=== PATIENT | female | born 1960 | race Caucasian/White ===

== ENCOUNTER 2016-09-10 05:00 | Inpatient (IN) | payer BC, OTHER ==
[2016-08-25 12:50] VITALS: BMI 37.0
--- NOTE | 2016-08-25 13:15 | PAT Medication Instructions ---
Service Date Aug 25, 2016. Current Home Medication List Bupropion (Wellbutrin Sr), 150 MG PO BID Naproxen (Naprosyn), 500 MG PO BID Ropinirole (Requip), 1 MG PO BID Medication Instructions For Your Scheduled Surgery Naproxen (Naprosyn), 500 MG PO BID (check with surgeon for instructions) - Hold the following medications the morning of surgery: Ropinirole (Requip), 1 MG PO BID - Take the following medications the morning of surgery with a sip of water: Bupropion (Wellbutrin Sr), 150 MG PO BID - Hold the following medications as scheduled the night before surgery: Ropinirole (Requip), 1 MG PO BID - Take the following medications as scheduled the night before surgery: Bupropion (Wellbutrin Sr), 150 MG PO BID If you have any questions please call us at [phone] (Danelle Retana PA-C ) or [phone] or [phone]
--- NOTE | 2016-08-25 14:04 | DIAGNOSTIC IMAGING REPORT ---
CHEST PREADMISSION(PA/LAT) CLINICAL HISTORY: PAT preoperative evaluation COMPARISON STUDY: No previous studies for comparison. FINDINGS: The bones soft tissues and hemidiaphragms are normal. The cardiomediastinal silhouette is normal. The lungs are clear. The pulmonary vasculature is normal. IMPRESSION: Negative chest. Electronically signed by: Bogdan Gu M.D. 08/25/2016 2:03 PM Dictated Date/Time: 08/25/2016 2:02 PM
[2016-08-25 14:15] LABS: BASO % 0.6 %; BASO ABS # 0.05 K/uL (0-0.2); COMPLETE YES; EOS % 3.1 %; HEMATOCRIT 36.9 % (37-47); IG% 0.3 %; LYMPH ABS # 2.52 K/uL (1.2-3.4); MEAN CELL VOLUME 90.4 fL (80-100); MEAN CORPUSCULAR HEMOGLOBIN 31.4 pg (25-34); MEAN CORPUSCULAR HGB CONC 34.7 g/dl (32-36); MEAN PLATELET VOLUME 10.2 fL (7.4-10.4); MONO % 9.4 %; NEUT % 57.6 %; PLATELET COUNT 283 K/uL (130-400); RED BLOOD COUNT 4.08 M/uL (4.2-5.4); WHITE BLOOD COUNT 8.68 K/uL (4.8-10.8)
[2016-08-25 14:32] LABS: PROTHROMBIN TIME (PATIENT) 10.7 SECONDS (9.0-12.0)
[2016-08-25 14:37] LABS: CALCIUM 9.4 mg/dl (8.5-10.1); CREATININE 0.64 mg/dl (0.60-1.20)
[2016-08-25 14:39] LABS: URINE APPEARANCE CLEAR (CLEAR); URINE BILIRUBIN NEG (NEG); URINE COLOR YELLOW; URINE NITRITE NEG (NEG); URINE SPECIFIC GRAVITY 1.022 (1.000-1.030); UROBILINOGEN NEG (NEG); ZZUR CULT IF INDIC CLEAN CATCH NO
[2016-08-25 14:46] LABS: MANUAL MICROSCOPIC REQUIRED? NO; REVIEW REQ? NO
[2016-08-26 06:10] LABS: ESTIMATED AVERAGE GLUCOSE 123 mg/dl; HA1C FLAG Normal (Normal)
--- NOTE | 2016-09-09 12:09 | HISTORY & PHYSICAL EXAMINATION ---
DATE OF ADMISSION: 09/10/2016 CHIEF COMPLAINT: Left knee pain. HISTORY OF PRESENT ILLNESS: The patient is a 56-year-old female with a known osteoarthritis about her left knee. She had previous right total knee arthroplasty, which has done well. She now has ongoing pain and disability with her left knee and desires to proceed with left total knee arthroplasty also. PAST MEDICAL HISTORY: Rosacea, restless legs syndrome, nonalcoholic fatty liver disease, hyperlipidemia, and obesity. PAST SURGICAL HISTORY: Right knee as above, x2, hysterectomy, and appendectomy. MEDICATIONS: Include Requip 1 mg twice daily, Wellbutrin SR 150 mg twice daily, Naprosyn 500 mg twice daily p.r.n., and Ventolin inhaler p.r.n. ALLERGIES: INCLUDE AMOXICILLIN. SOCIAL HISTORY AND REVIEW OF SYSTEMS: Noncontributory. PHYSICAL EXAMINATION: GENERAL: Well-nourished and well-developed, obese female who appears her stated age. HEENT: Normocephalic and atraumatic, extraocular movements intact, oropharynx pink and moist. NECK: Supple without adenopathy. LUNGS: Clear to auscultation bilaterally. HEART: Regular rate and rhythm. ABDOMEN: Soft, nontender, nondistended, and obese. EXTREMITIES: The upper extremities are within normal limits. The left knee has a varus alignment. Her range of motion is from 0-120 degrees. She has mild crepitus with range of motion. X-RAYS: X-rays were reviewed. She has a varus aligned knee with bone on bone arthritis of medial compartment with near complete loss of the joint space. There is osteophyte formation about the medial and lateral joint line as well as the patellofemoral joint. ASSESSMENT: Left knee degenerative joint disease. PLAN: Risks versus benefits were discussed. Consent was obtained. The patient's primary care physician is Dr. Leos from [facility]. We will proceed with left total knee arthroplasty upon preoperative workup and medical clearance.
[~2016-09-10] VITALS: Ht 180.3 cm; Wt 121.9 kg
[2016-09-10] VITALS (9 sets, daily range): BP systolic 99–124; BP diastolic 60–78; PULSE 65–77; TEMP 36.5–37.2; O2SAT 94–100; Ht 180.3 cm; Wt 121.9 kg
[~2016-09-10 05:00] MED LIST: BUPR-79 PO; NAPR-1169 PO; ROPI1TAB PO
[2016-09-10] MEDS ORDERED: NURSING VERBAL MED ORDER STA ×2 (05:26→07:22)
[2016-09-10] MEDS ORDERED: LACTATED RINGER'S 1000ML IV SCH (06:00)
[2016-09-10] MEDS ORDERED: CEFAZOLIN 3000 MG/65 ML D5W 65 ML IV SCH (06:00)
[2016-09-10] MEDS ORDERED: LACTATED RINGER'S 500 ML IV SCH (06:00)
[2016-09-10] MEDS ORDERED: ROPIVACAINE 5MG/ML 30 ML 150 MG, BUPIVACAINE/EPINEPHR 0.5% MPF 30 ML, KETOROLAC TROMETH... INFIL SCH ×7 (06:00)
[2016-09-10] MEDS ORDERED: BUPIVACAINE 0.5 % 5 MG/1 ML PF 10ML VIAL ONE (06:21)
[2016-09-10] MEDS ORDERED: BUPIVACAINE 0.25% 30 ML VIAL ONE (06:21)
[2016-09-10] MEDS ORDERED: FENTANYL CITRATE INJ 50 MCG/1 ML 2 ML VIAL ONE (06:46)
[2016-09-10] MEDS ORDERED: MIDAZOLAM HCL 1 MG/ML 2ML VIAL ONE ×2 (06:46)
[2016-09-10] MEDS ORDERED: ORTHO JOINT ANESTHETIC ONE (06:49)
[2016-09-10] MEDS ORDERED: POVIDONE-IODINE OP SOLN 30 ML BTL ONE (06:49)
[2016-09-10] MEDS ORDERED: BACITRACIN 50000 UNIT VIAL ONE (06:49)
[2016-09-10] MEDS ORDERED: CLINDAMYCIN 600 MG/54 ML D5W IV ONE (06:56)
[2016-09-10] MEDS: TRANEXAMIC ACID AMP 1,000 MG in NSS 100ML IV SCH ×2 (07:00→07:40)
--- NOTE | 2016-09-10 07:02 | History & Physical Bridge Note ---
H&P Re-Evaluation Bridge Note: I have examined the patient, reviewed the History & Physical and in the interval since the performance of the History & Physical I have noted the following changes of clinical significance: No changes noted
[2016-09-10] MEDS ORDERED: PROPOFOL IV EMULSION 10 MG/ML 20 ML VIAL IV ONE ×2 (07:14→08:18)
[2016-09-10] MEDS ORDERED: EpHEDrine SULFATE INJ 50 MG/ML AMP IV PRN (07:45)
[2016-09-10] MEDS ORDERED: ATROPINE SULFATE 0.1 MG/ML 5ML SYR IV PRN (07:45)
[2016-09-10] MEDS ORDERED: FENTANYL CITRATE INJ 50 MCG/1 ML 2 ML VIAL IV PRN (07:45)
[2016-09-10] MEDS ORDERED: ONDANSETRON INJ 2 MG/ML 2 ML VIAL IV PRN ×2 (07:45→08:45)
--- NOTE | 2016-09-10 08:05 | [facility] Post Operative Brief Note ---
Immediate Operative Summary Operative Date Sep 10, 2016. Pre-Operative Diagnosis Left Knee Degenerative Joint Disease Post-Operative Diagnosis Left Knee Degenerative Joint Disease Procedure(s) Performed Left Total Knee Arthroplasty, Cemented Surgeon Dr. Moeller Supply Manager Surgeon(s) Immanuel Escamilla PA-C Estimated Blood Loss 10mL Findings severe OA Specimens A: Left Knee Bone and Tissue Disposition Surgical ICU
--- NOTE | 2016-09-10 08:08 | [facility] Post Operative Brief Note ---
Immediate Operative Summary Operative Date Sep 10, 2016. Pre-Operative Diagnosis Left Knee Degenerative Joint Disease Post-Operative Diagnosis Left Knee Degenerative Joint Disease Procedure(s) Performed Left Total Knee Arthroplasty, Cemented Surgeon Dr. Moeller Hand Folder Surgeon(s) Immanuel Escamilla PA-C Estimated Blood Loss 10mL Findings OA Specimens A: Left Knee Bone and Tissue Disposition Recovery Room / PACU
--- NOTE | 2016-09-10 08:21 | OPERATIVE REPORT ---
DATE OF OPERATION: 09/10/2016 PREOPERATIVE DIAGNOSIS: Osteoarthritis left knee. POSTOPERATIVE DIAGNOSIS: Osteoarthritis left knee. PROCEDURE: Left total knee arthroplasty. SURGEON: Dr. Moeller. NETWORK SERVICES PROJECT MANAGER: Immanuel Escamilla PA-C. ANESTHESIA: Spinal. COMPLICATIONS: None. OPERATION AND FINDINGS: Following induction of spinal anesthesia, the patient's left leg was prepped and draped in the usual sterile manner. Limb was exsanguinated with an Esmarch bandage and tourniquet was inflated to 350 mmHg. A longitudinal incision was made anteriorly. Subcutaneous tissue was sharply dissected. Electrocautery was used for hemostasis. Prepatellar bursa was incised and median parapatellar incision was performed. Patella was everted and the knee was flexed. Fat pad was removed to aid in visualization and the anterior and posterior cruciate ligaments were removed. The medial face of the tibia was cleared of soft tissue first with a Bovie and a Tony elevator. This tissue was retracted posteriorly using a blunt Hohmann. A Cloud retractor was used to expose the synovium above on the anterior aspect of the femur and this was removed down to bone. The PSI guide was placed on the distal femur and two pins were placed anteriorly and kept in position and two additional pins were placed distally and removed. The distal femoral cutting block was placed in position and the distal femoral cut was used in the +0 setting. Next, the cutting block was removed and the size 4 block was placed in the distal end of the femur. Care was taken to ensure appropriate external rotation and feeler gauge was used to ensure no notching would occur. The femoral block was centered on the distal femur and in the medial and lateral direction and was fixed using two bone screws. The gold pins were then removed. The oscillating saw was used to create the bone cuts and the distal femoral cutting block was removed and the reciprocating saw was used to further trim the femoral cuts as well as a deep in the area for the trochlear groove. Next, posterior condyle remnants were removed. Following this, a meniscal clamp and knife were utilized to remove the anterior portion of both medial and lateral meniscus. The proximal tibia PSI guide was placed into position and the proximal tibial cutting guide was screwed into position. The extra medullary alignment guide was utilized to ensure appropriate alignment. The proximal tibia was cut and the proximal tibial cutting block was removed and this bone fragment was removed. The appropriate guide was used to perform the notch cut on the distal femur and a lamina restaurant team member and a cochlear knife were utilized to finish both medial and lateral meniscectomies to remove any remnants of the posterior or anterior cruciate ligaments. Following this, the distal femoral component was impacted into position and blunt Kathie was used to sublux the tibia anteriorly. The proximal tibia was sized and a size 4 tibial tray was chosen as the size to be used. This was put into position and appropriate external rotation and a double check with extramedullary alignment guide was performed. The canal for the tibial stem was prepared first with a 17 mm drill and then the punch and a mallet and the trial tibial poly was placed. A size 13 was chosen the size to be used. It was brought to extension and the patella was prepared with the patellar reamer. A size 36 component was chosen the size to be used. The trial component was placed and knee was taken through a full range of motion and there was found to be no lateral subluxation of the tibia. No lateral release was required. The trials were all removed. The final components were obtained and assembled. Cement was mixed. The knee was thoroughly irrigated and the ortho mix was injected about the knee joint. The final components were cemented into position. After thoroughly suctioning and drying the bone ends, all excess cement was removed. The knee was held in extension while the cement hardened. The wound was irrigated and closed over a Hemovac drain. #1 Vicryl was used to close the extensor mechanism. Subcutaneous tissues closed using 0 Dexon. Skin was closed with munira. Sterile dressing of Adaptic, 4 x 4's, sterile Webril, and Benjamin was applied. The patient tolerated the procedure well. Recovery room stable. Due to the complex nature of the procedure, the entire surgery was performed with the operational assistance of Immanuel Escamilla PA-C. The primary teaching assistant, under direct supervision, was involved in the actual performance of all aspects of the surgical procedure including hemostasis, tissue retraction and incision, instrument management, patient positioning, and wound closure. I attest to the content of the Intraoperative Record and any orders documented therein. Any exceptio ns are noted below.
[2016-09-10] MEDS ORDERED: METOCLOPRAMIDE HCL INJ 5 MG/ML 2 ML VIAL IV PRN (08:45)
[2016-09-10] MEDS ORDERED: HYDROmorphone INJ 2 MG/ML SYR/VIAL IV PRN (08:45)
[2016-09-10] MEDS ORDERED: ZOLPIDEM TARTRATE 5 MG TAB PO PRN (08:45)
[2016-09-10] MEDS ORDERED: ALUMINUM/MAGNESIUM/SIMETH (MAALOX MAX) 30 ML UDC PO PRN (08:45)
[2016-09-10] MEDS ORDERED: MAGNESIUM HYDROXIDE SUSP 30 ML UDC PO PRN (08:45)
--- NOTE | 2016-09-10 09:09 | DIAGNOSTIC IMAGING REPORT ---
LEFT KNEE 1 OR 2 VIEWS ROUTINE CLINICAL HISTORY: AP/LATERAL IN PACU LEFT KNEE trauma placement COMPARISON: None. DISCUSSION: Status post total left knee replacement. Good contact between prosthetic and underlying bone. Surgical drains are in position. Expected soft tissue postoperative change IMPRESSION: Anatomic alignment status post total left knee replacement Electronically signed by: Bogdan Gu M.D. 09/10/2016 9:08 AM Dictated Date/Time: 09/10/2016 9:06 AM
--- NOTE | 2016-09-10 09:13 | Anesthesiology Progress Note ---
Anesthesia Post Op Note Date & Time Sep 10, 2016 at 09:13 Vital Signs Pain Intensity: 0 Vital Signs Past 12 Hours Date Time Temp Pulse Resp B/P Pulse Ox O2 Delivery O2 Flow Rate FiO2 09/10/16 08:40 36.6 77 16 109/70 98 Nasal Cannula 2 09/10/16 05:40 36.8 71 20 117/70 97 Room Air Notes Mental Status: alert / awake / arousable, participated in evaluation Pt Amnestic to Procedure: Yes Nausea / Vomiting: adequately controlled Pain: adequately controlled Airway Patency, RR, SpO2: stable & adequate BP & HR: stable & adequate Hydration State: stable & adequate Neuraxial Anesthesia: was administered, sensory block is resolving Anesthetic Complications: no major complications apparent
[2016-09-10] MEDS: D5W AND 1/2NSS + 20MEQ KCL 1,000 ML IV SCH ×2 (10:34→20:36)
[2016-09-10] MEDS: DOCUSATE SODIUM 100 MG CAP PO SCH ×2 (10:34→20:39)
[2016-09-10] MEDS: MULTIVITAMIN TAB PO SCH (10:35)
[2016-09-10] MEDS: KETOROLAC TROMETHAMINE 30 MG/ML VIAL IV. SCH ×3 (10:35→21:53)
[2016-09-10] MEDS: PANTOprazole SOD 40 MG TAB PO SCH (10:36)
[2016-09-10] MEDS: ROPINIROLE HCL 1 MG TAB PO SCH ×2 (10:36→20:39)
[2016-09-10] MEDS: BuPROPion SR 150 MG TABCR PO SCH ×2 (10:37→20:39)
[2016-09-10] MEDS: FERROUS GLUCONATE 324 MG TAB PO SCH ×2 (12:26→18:05)
[2016-09-10] MEDS: ACETAMINOPHEN 500 MG TAB PO SCH ×2 (13:33→21:53)
[2016-09-10] MEDS: CLINDAMYCIN IV 600 MG in DEXTROSE 5% ADD-VANTAGE 50ML 50 ML IV SCH ×2 (16:08→23:37)
[2016-09-10] MEDS: ASPIRIN 81 MG ECTAB PO SCH (20:39)
[2016-09-10] MEDS: OXYCODONE HCL 10 MG TABCR (OXYCONTIN) PO SCH (20:40)
[2016-09-11] MEDS: KETOROLAC TROMETHAMINE 30 MG/ML VIAL IV. SCH (03:46)
[2016-09-11 04:37] VITALS: BP 100/62; PULSE 72; TEMP 36.6; O2SAT 95
[2016-09-11] MEDS: ACETAMINOPHEN 500 MG TAB PO SCH ×3 (05:33→21:18)
[2016-09-11] MEDS: D5W AND 1/2NSS + 20MEQ KCL 1,000 ML IV SCH (05:33)
[2016-09-11 07:09] LABS: HEMATOCRIT 32.7 % (37-47); MEAN CELL VOLUME 90.8 fL (80-100); MEAN CORPUSCULAR HEMOGLOBIN 30.8 pg (25-34); MEAN CORPUSCULAR HGB CONC 33.9 g/dl (32-36); MEAN PLATELET VOLUME 9.6 fL (7.4-10.4); PLATELET COUNT 254 K/uL (130-400); WHITE BLOOD COUNT 10.85 K/uL (4.8-10.8)
[2016-09-11] MEDS ORDERED: DEXAMETHASONE INJ 10 MG in SYRINGE 0 ML IV ONE (07:30)
[2016-09-11 07:32] LABS: CALCIUM 8.5 mg/dl (8.5-10.1); CREATININE 0.62 mg/dl (0.60-1.20); POTASSIUM 4.4 mmol/L (3.5-5.1)
--- NOTE | 2016-09-11 07:40 | Orthopedic Progress Note ---
Orthopedic Progress Note Date of Service Sep 11, 2016. Subjective Post OP Day: 1 Reports: feeling well Objective N/V intact, dressing C/D/I (Hemovac in place), toes mobile Date Time Temp Pulse Resp B/P Pulse Ox O2 Delivery O2 Flow Rate FiO2 09/11/16 04:37 36.6 72 16 100/62 95 Room Air 09/10/16 23:11 36.8 71 16 99/60 95 Room Air 09/10/16 20:10 36.8 74 18 117/73 95 Room Air 09/10/16 19:50 Room Air 09/10/16 16:20 Room Air 09/10/16 15:30 36.9 77 18 108/67 94 Room Air 09/10/16 12:30 37.2 76 16 118/78 95 Nasal Cannula 2.0 09/10/16 11:30 36.7 74 16 124/78 99 2.0 09/10/16 10:30 36.6 74 16 111/76 100 2.0 09/10/16 10:00 71 16 108/75 100 Nasal Cannula 2.0 09/10/16 10:00 Nasal Cannula 2.0 09/10/16 09:55 Nasal Cannula 2.0 09/10/16 09:30 36.5 65 16 107/69 98 Nasal Cannula 2.0 09/10/16 09:15 36.7 63 17 104/67 95 Nasal Cannula 2 09/10/16 09:05 65 15 112/70 98 Nasal Cannula 2 09/10/16 08:55 74 16 116/71 96 Nasal Cannula 2 09/10/16 08:47 73 14 98 09/10/16 08:47 73 14 09/10/16 08:46 108/72 09/10/16 08:45 80 16 09/10/16 08:45 81 16 99 09/10/16 08:44 109/70 09/10/16 08:40 36.6 77 16 109/70 98 Nasal Cannula 2 Laboratory Results 24 Hours: Test 09/11/16 06:52 Hematocrit 32.7 % Hemoglobin 11.1 g/dL Assessment & Plan Assessment: 56 yo female stable POD #1 s/p left TKA Plan: 1. Med management 2. DVT prophylaxis- ASA, TEDs, SCDs 3. PT/OT 4. D/C planning- home w/ HH
--- NOTE | 2016-09-11 07:42 | Discharge Instructions ---
Discharge Instructions Date of Service Sep 11, 2016. Admission Reason for Admission: Left Knee Degenerative Joint Disease Discharge Discharge Diagnosis / Problem: Left knee arthritis Discharge Goals Goal(s): Decrease discomfort, Improve function Activity Recommendations Activity Limitations: as noted below Weightbearing Status: Left weightbearing (as tolerated) . Instructions / Follow-Up Instructions / Follow-Up ACTIVITY RECOMMENDATIONS: SELF CARE INSTRUCTIONS AFTER TOTAL KNEE REPLACEMENT A. You may need to continue a physical therapy program after discharge from the hospital. There are several options available to you. Your doctor will assist you in selecting the best one for you. 1. An out-patient facility 2 to 3 times a week for therapy or home therapy. 2. Continue working on all exercises taught to you in the hospital. Your goals should be to increase bending of your knee to 90 degrees and beyond and to fully straighten your knee. B. You may progress at your own pace from walking with a walker or crutches to a cane; then to no assistive devices. C. Make walking a part of your daily routine. Be up as much as comfortable with rest periods throughout the day. Rest with leg elevation is very important. Use the ice wrap frequently for the first 3-4 weeks. D. There are no restrictions on activities. You may ride in a car, shop, participate in plumber maintenance and all social activities. E. Wear the long elastic stockings (KIM hose) 20 hours a day for 2 weeks after surgery. They can be removed several times a day for laundering and for a bath. F. You may shower, no tub baths until cleared by your doctor. SPECIAL CARE INSTRUCTIONS: VERY IMPORTANT TO READ AND REVIEW A. There are a few signs you need to watch for after you are home. Call [facility] if you notice any of the followin. Increased severe knee pain. Some pain is expected especially when you exercise. 2. Increased swelling in your leg or knee; pain or swelling of the calf muscle in either lower leg. 3. Any fluid drainage from the incision. 4. Shortness of breath or chest pain. B. Please call [facility] at if you have any concerns or questions about your operation or recovery. The doctor or his nurse will return your call promptly. C. You must take antibiotics before dental work, bladder, bowel or other surgery. Your doctor will provide you with a permanent care to carry describing this precaution. IMPORTANT: * REMEMBER TO TAKE ASPIRIN, 81 MG, TWICE DAILY FOR 4 WEEKS UNLESS OTHERWISE DIRECTED. THIS IS YOUR BLOOD THINNER. * HIGH RISK PATIENTS MAY BE PRESCRIBED A STRONGER BLOOD THINNER. THIS WILL BE PROVIDED AT DISCHARGE. * CALL IF INCREASED PAIN, REDNESS, DRAINAGE OR FEVER GREATER THAT 101. * WEAR KIM HOSE 20 HOURS PER DAY FOR 2 WEEKS. Silverlon- This is a large adhesive bandage that contains silver ions. This helps your incision heal by fighting off bacteria and protecting it from the outside environment. You are permitted to shower with this dressing. This will remain on your incision for 7 days and then should be removed. Some visible blood or drainage through the dressing window is normal. If there is significant drainage or leaking noted before the 7 days notify your doctor's office immediately. Once removed, keep incision clean and dry. If there is any drainage or redness noted, please call your surgeon. FOLLOW UP VISIT: If appointment is not already scheduled: Please call [facility] to make a follow-up appointment for 2 weeks after your surgery at . Current Hospital Diet Patient's current hospital diet: Regular Diet Discharge Diet Recommended Diet: Regular Diet Procedures Procedures Performed: Left Total Knee Arthroplasty, Cemented Pending Studies Studies pending at discharge: no Laboratory Results Hemoglobin A1c Test 08/25/16 13:22 Range/Units Estimated Average Glucose 123 mg/dl Hemoglobin A1c 5.9 H 4.5-5.6 % Medical Emergencies . Who to Call and When: Medical Emergencies: If at any time you feel your situation is an emergency, please call 911 immediately. . Non-Emergent Contact Non-Emergency issues call your: Surgeon Call Non-Emergent contact if: temperature is above 101.5, your pain is not controlled, wound has increased drainage, wound has increased redness . "Provider Documentation" section prepared by Immanuel Escamilla PA-C. VTE Core Measure Inpt VTE Proph given/why not?: Other Anticoagulation (ASA 81mg bid) [place] Drug Monitoring Program Search Results: patient reviewed within database, no issues identified
[2016-09-11 07:50] VITALS: BP 110/72; PULSE 71; TEMP 36.7; O2SAT 97
[2016-09-11] MEDS: OXYCODONE HCL IR 5 MG TAB (IMMEDIATE RELEASE) PO PRN ×4 (08:39→21:20)
[2016-09-11] MEDS: FERROUS GLUCONATE 324 MG TAB PO SCH ×3 (08:39→17:01)
[2016-09-11] MEDS: ROPINIROLE HCL 1 MG TAB PO SCH ×2 (08:39→21:17)
[2016-09-11] MEDS: PANTOprazole SOD 40 MG TAB PO SCH (08:39)
[2016-09-11] MEDS: OXYCODONE HCL 10 MG TABCR (OXYCONTIN) PO SCH ×2 (08:39→19:57)
[2016-09-11] MEDS: BuPROPion SR 150 MG TABCR PO SCH ×2 (08:39→19:59)
[2016-09-11] MEDS: ASPIRIN 81 MG ECTAB PO SCH ×2 (08:39→19:58)
[2016-09-11] MEDS: MULTIVITAMIN TAB PO SCH (08:39)
[2016-09-11] MEDS: DOCUSATE SODIUM 100 MG CAP PO SCH ×2 (08:39→19:59)
[2016-09-11 09:52] VITALS: O2SAT 97
[2016-09-11 11:54] VITALS: BP 132/78; PULSE 67; TEMP 36.5; O2SAT 95
[2016-09-11 14:55] VITALS: BP 125/80; PULSE 73; TEMP 36.8; O2SAT 95
[2016-09-11] MEDS: CeleBREX 200 MG CAP PO SCH (19:58)
[2016-09-11 22:56] VITALS: BP 128/79; PULSE 78; TEMP 36.7; O2SAT 94
[2016-09-12] MEDS: OXYCODONE HCL IR 5 MG TAB (IMMEDIATE RELEASE) PO PRN ×2 (05:40→09:23)
[2016-09-12] MEDS: ACETAMINOPHEN 500 MG TAB PO SCH (05:41)
[2016-09-12 07:05] VITALS: BP 134/79; PULSE 73; TEMP 36.8; O2SAT 96
[2016-09-12] MEDS: FERROUS GLUCONATE 324 MG TAB PO SCH ×2 (08:04→12:55)
[2016-09-12] MEDS: DOCUSATE SODIUM 100 MG CAP PO SCH (08:04)
[2016-09-12] MEDS: ASPIRIN 81 MG ECTAB PO SCH (08:04)
[2016-09-12] MEDS: BuPROPion SR 150 MG TABCR PO SCH (08:04)
[2016-09-12] MEDS: ROPINIROLE HCL 1 MG TAB PO SCH (08:04)
[2016-09-12] MEDS: MULTIVITAMIN TAB PO SCH (08:04)
[2016-09-12] MEDS: CeleBREX 200 MG CAP PO SCH (08:05)
[2016-09-12] MEDS: PANTOprazole SOD 40 MG TAB PO SCH (08:05)
[2016-09-12] MEDS: OXYCODONE HCL 10 MG TABCR (OXYCONTIN) PO SCH (08:08)
--- NOTE | 2016-09-12 08:14 | Orthopedic Progress Note ---
Orthopedic Progress Note Date of Service Sep 12, 2016. Subjective Post OP Day: 2 Reports: feeling well, pain controlled w PO medications, Denies: SOB, calf pain , chest pain, complaints, light headedness, nausea / vomiting Additional Notes: Patient feels well. She has some soreness from doing PT but she feels good. Objective calves soft nontender, N/V intact, capillary refill less than 2 sec., dressing C /D/I, A&O x3, toes mobile Date Time Temp Pulse Resp B/P Pulse Ox O2 Delivery O2 Flow Rate FiO2 09/12/16 08:01 Room Air 09/12/16 07:05 36.8 73 18 134/79 96 Room Air 09/11/16 22:56 36.7 78 18 128/79 94 CPAP 09/11/16 19:50 Room Air 09/11/16 14:55 36.8 73 18 125/80 95 Room Air 09/11/16 11:54 36.5 67 22 132/78 95 Room Air 09/11/16 09:52 97 Room Air Assessment & Plan Assessment: 56 yo female stable POD #2 s/p left TKA Plan: 1. Med management 2. DVT prophylaxis- ASA, TEDs, SCDs 3. PT/OT 4. D/C planning- home w/ HH Discharge Planning Discharge Planning: home with home health DVT Prophylaxis: ASA Therapy: Physical Therapy
[2016-09-12] MEDS ORDERED: OXYSR10 PO (11:17)
[2016-09-12] MEDS ORDERED: ACET-1138 PO (11:17)
[2016-09-12] MEDS ORDERED: ONDA8TAB6 PO (11:17)
[2016-09-12] MEDS ORDERED: CLB200 PO (11:17)
[2016-09-12] MEDS ORDERED: RXC5 PO (11:17)
[2016-09-12 13:10] VITALS: BP 134/79; PULSE 73; TEMP 36.8; O2SAT 96
--- NOTE | 2016-09-16 16:04 | DISCHARGE SUMMARY ---
CHIEF COMPLAINT: Left knee pain. Please see complete history and physical examination. HOSPITAL COURSE: The patient underwent left total knee arthroplasty without complication. She tolerated the procedure well and was discharged to recovery room in stable condition. Her postoperative course was relatively uneventful. Her postoperative pain was reasonably well controlled with a combination of spinal anesthesia, adductor canal block, intraoperative joint injection, IV, and oral pain medications. She was started on aspirin for DVT prophylaxis. She also utilized KIM stockings and SCDs for additional prophylaxis. Her H\T\H was stable and did not require transfusion. Her surgical drain was discontinued on postoperative day 2, her surgical dressing will remain in place for approximately 7 days postoperative. She tolerated postoperative physical therapy reasonably well where she was bending her knee and ambulating appropriately. She was discharged home on postoperative day 2. She will continue her physical therapy at home. She will continue her aspirin for DVT prophylaxis and follow up in our office in approximately 10-14 days for her initial postop evaluation.
== END 2016-09-12 13:40 | disposition home health service (06) | DRG 470 ==
LOC: ENRESERVDT → ENRESERVTM → C.ACU 05:00 → C.3E 08:47
PROC: 0SRD0J9 Replacement of Left Knee Joint with Synthetic Substitute, Cemented, Open Approach (ICD-10-PCS; principal; 2016-09-10 07:00)
DX: M17.12 Unilateral primary osteoarthritis, left knee (principal); G25.81 Restless legs syndrome; K76.0 Fatty (change of) liver, not elsewhere classified; E66.9 Obesity, unspecified; Z68.37 Body mass index [BMI] 37.0-37.9, adult; Z96.651 Presence of right artificial knee joint; Z79.1 Long term (current) use of non-steroidal anti-inflammatories (NSAID); Z79.899 Other long term (current) drug therapy; Z88.0 Allergy status to penicillin